=== PATIENT | female | born 1975 | race Two or more races ===

== ENCOUNTER 2025-05-18 13:06 | Outpatient (AMB) | payer MEDICAID, SELFPAY ==
[2025-05-18 13:16] VITALS: BP 134/84; PULSE 74; RESP 18; TEMP 36.4; O2SAT 96; BMI 45.9
--- NOTE | 2025-05-18 13:16 | GSCOFFNT_ITS ---
Vital Signs - [facility] 05/18/25 13:16 Height 1.75 m Height Method Measured Weight 141.067 kg Weight Measurement Method Standing Scale BMI 45.9 BP 134/84 H Blood Pressure Source Automatic Cuff Blood Pressure Location Left Upper Arm Position Sitting Respiration 18 Pulse 74 Pulse Source Monitor Temp 97.5 F Temp Source Temporal Artery Scan Pulse Oximetry (%) 96 Oxygen Delivery Method Room Air Med/Allergies Allergies & Medications Allergies No Known Allergies Allergy (Verified 05/18/25 13:17) Medication Reconciliation ezetimibe 10 mg-simvastatin 20 mg tablet 1 tab PO QDAY 05/18/25 [History Confirmed 05/18/25] levothyroxine 175 mcg capsule 175 mcg PO QDAY 05/18/25 [History Confirmed 05/18/25] liothyronine 5 mcg tablet 5 mcg PO QDAY 05/18/25 [History Confirmed 05/18/25] MA Intake Visit Data Collection New Patient or Established: Established Patient (seen at [facility] within 3 years) Seen by Clinical Staff ONLY (RN/MA): No Reason for Visit:: REFERRAL GALLSTONES Pain Present Currently: No Pain Scale 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 PCP or OBGYN visit in last 3 months: Yes Hx Now: No Do You Feel Safe at Home: Yes Smoking Status Smoking Status: Never smoker Immunization / Flu Flu Vaccine in the Last 12 Months: Yes Flu Vaccine Exclusion Criteria: Already Received Past Medical History Past Medical History CARDIAC: Negative Congestive Heart Failure RESPIRATORY: Negative Chronic Obstructive Pulmonary Disease (COPD) GENITOURINARY: Negative Renal Disease ENDOCRINE: Positive Hypothyroidism; Negative Diabetes Mellitus Type 1 or Diabetes Mellitus Type 2 Social History SMOKING STATUS: Smoking status: Never smoker HPI HPI Narrative HISTORY OF PRESENT ILLNESS I, Jolene Denis, have obtained verbal consent from the patient, to be recorded during this encounter which may include, but not limited to, medical history, examination, treatment plans, and relevant health information.? Patient was informed that recording will be read and reviewed by myself before inclusion in the medical chart. The patient was referred for an incidental finding of cholelithiasis. She underwent an ultrasound to evaluate her liver, which incidentally revealed the presence of gallstones. Pt denies any history of postprandial pain or nausea PMH: Hypothyroidism, HLD, DMII (A1c 10 on 02/15/2025), thyroid CA Meds: Levothyroxine, zepbound, vytorin, liothyronine ROS Review of Systems Systems Reviewed: All systems reviewed, normal except as documented Objective/Exam General General Appearance: alert, cooperative and well groomed Resp Respiratory exam: Absent respiratory distress Results Abdominal US performed for abnormal LFTs (ALT/AST 43/50 respectively) on 05/08/25: Cholelithiasis, hepatomegaly and moderate to severe fatty liver Assessment & Plan Diagnosis / Problem List (1) Asymptomatic cholelithiasis: Status: Acute Assessment & Plan: The ultrasound results indicate the presence of multiple small gallstones. Surgical intervention is not recommended due to the absence of symptoms. I encouraged pt to reach out if symptoms develop. All questions were answered and pt expressed understanding Office Procedures GNS Level of Care Nursing/Assessment Patient Status: Established Patient Nursing Assessment/Reassesment: Medication Reconciliation, Update PMH in EMR and Vital Signs Coordination of Care: Complex Care and Chronic Disease 1-5, Education Complex Pt/Fam, Consent,records obtained, informed consent, Results/Orders obtained and Staff clarify orders Established Patient Charge Established Patient Point Assignment: 95 Established Patient Point Charge: EP Level 3 (80-115) Patient Portal Questionaires Social History Tobacco History Smoking Status: Never smoker Domestic Abuse History Do You Feel Safe at Home: Yes Review of Systems Report any current symptoms Only answer those that you have currently: Past Medical History Past Medical History Have you ever been diagnosed with any of the following: Cardiology Problems Congestive Heart Failure: No Respiratory Problems Chronic Obstructive Pulmonary Disease (COPD): No Genital/Urinary Problems Renal Disease: No Endocrine Problems Diabetes Mellitus Type 1: No Diabetes Mellitus Type 2: No Hypothyroidism: Yes
== END 2025-05-18 14:04 | disposition home or self-care (01) ==
LOC: HODSRG 13:06
PROVIDERS: PCP Family Medicine; Referring Provider Family Medicine; Supervising Provider Surgery; Visit Provider Surgery
DX: K80.20 Calculus of gallbladder without cholecystitis without obstruction (principal); K76.0 Fatty (change of) liver, not elsewhere classified; I10 Essential (primary) hypertension
CPT/HCPCS: 99213; G0463